=== PATIENT | female | born 1950 | race Caucasian/White ===

== ENCOUNTER 2018-04-03 21:55 | Emergency (ER) | payer OTHER ==
[~2018-04-03] VITALS: Ht 160 cm; Wt 43.1 kg
== END 2018-04-03 22:50 | disposition home or self-care (01) ==
LOC: ER 22:00
DX: M54.2 Cervicalgia (principal); G89.29 Other chronic pain; Z60.2 Problems related to living alone

== ENCOUNTER 2019-01-13 14:00 | Emergency (ER) | payer MEDICARE ==
[~2019-01-13] VITALS: Ht 160 cm; Wt 47.2 kg
--- NOTE | 2019-01-13 14:18 | NUR ---
Patient refused BP to be taken.
== END 2019-01-13 14:45 | disposition home or self-care (01) ==
LOC: ER 14:00
DX: M54.2 Cervicalgia (principal); G89.29 Other chronic pain; Z76.0 Encounter for issue of repeat prescription; Z60.2 Problems related to living alone
CPT/HCPCS: Z7502